=== PATIENT | male | born 1945 | race Caucasian/White ===

== ENCOUNTER → 2021-12-17 | Outpatient (CLI) | payer OTHER ==
[~2021-12-17] MED LIST: CEPHALEXIN500 M1 PO; NO HOME MEDICATIONS; NORCO 325 MG-51 TAB PO
== END ==
LOC: COL.VAS 13:58
DX: I08.3 Combined rheumatic disorders of mitral, aortic and tricuspid valves (principal)

== ENCOUNTER 2022-03-08 11:53 | Day surgery (SDC) | payer OTHER ==
[2022-03-08] VITALS (10 sets, daily range): BP systolic 101–148; BP diastolic 69–85; PULSE 64–78; TEMP 97.9
[~2022-03-08] VITALS: Ht 175.3 cm; Wt 89.4 kg
[2022-03-08 12:33] LABS: HEMATOCRIT 44.7 % (42.0-52.0); HEMOGLOBIN 14.7 g/dl (13.5-18.0); MEAN CELL VOLUME 88 fl (80.0-100.0); MEAN CORPUSCULAR HEMOGLOBIN 29 pg (27-31); MEAN CORPUSCULAR HGB CONC 33 g/dl (33.0-37.0); MEAN PLATELET VOLUME 10.7 fl (7.4-10.4); PLATELET COUNT 218 K/mm3 (130-400); RED BLOOD COUNT 5.06 M/mm3 (4.20-5.60); REDCELL DISTRIBUTION WIDTH-CV 13.2 % (11.5-14.5)
[2022-03-08 12:44] LABS: PROTHROMBIN TIME 11.3 SECONDS (9.7-12.8)
[2022-03-08 12:46] LABS: PARTIAL THROMBOPLASTIN TIME 28.2 SECONDS (26.0-37.0)
[2022-03-08 12:49] LABS: CALCIUM 8.9 mg/dL (8.4-10.2); CREATININE, serum 1.05 mg/dL (0.72-1.25); POTASSIUM 3.5 mmol/L (3.5-4.5)
[2022-03-08] MEDS ORDERED: ASPIRIN 81M81 MG/TA2 PO (12:58)
[2022-03-08] MEDS ORDERED: PROSCAR 5MG5 MG PO (12:59)
[2022-03-08] MEDS ORDERED: TOPROL XL 25MG25 MG PO (13:00)
[2022-03-08] MEDS ORDERED: LIPITOR 40MG TA40 MG PO (13:00)
[2022-03-08] MEDS ORDERED: TRELEGY ELLIPT1 EACH IH (13:01)
--- NOTE | 2022-03-08 14:09 | NUR ---
SEE MERGE FOR ALL MEDICATION ADMINISTRATION TIMES, INTRA AND POST SEDATION ASSESSMENTS
--- NOTE | 2022-03-08 14:54 | NUR ---
LEFT FEMORAL VENOUS ACCESS WITH CDI BANDAGE, BILAT LOWER EXT PULSES +2
--- NOTE | 2022-03-08 15:15 | NUR ---
LEFT VENOUS FEMORAL DRESSING CDI, BILAT LOWER EXTREMITY PULSES +2
--- NOTE | 2022-03-08 15:30 | NUR ---
BILAT LOWER EXTREMITY PULSES +2, DRESSING TO FEMORAL VENOUS ACCESS CDI
--- NOTE | 2022-03-08 15:45 | NUR ---
LEFT VENOUS FEMORAL ACCESS CDI, LOWER EXT. BILAT PULSES +2
--- NOTE | 2022-03-08 16:00 | NUR ---
BILAT LOWER EXTREMITY PULSES +2, FEMORAL VENOUS DRESSING CDI
--- NOTE | 2022-03-08 16:30 | NUR ---
GROIN DRESSING CDI, LOWER EXTREMITY PULSES +2
--- NOTE | 2022-03-08 17:00 | NUR ---
GROIN DRESSING CDI
--- NOTE | 2022-03-08 17:15 | NUR ---
2MLS REMOVED FROM TR BAND, NO BLEEDING NOTED, RADIAL PULSES +2 BILAT
--- NOTE | 2022-03-08 17:45 | NUR ---
REMAINDER OF AIR REMOVED FROM TR BAND. IV CATHETER REMOVED AND DRESSED. RIGHT RADIAL SITE DRESSED, DISCHARGE EDUCATION GIVEN, PT REPORTS UNDERSTANDING, PT ESCORTED VIA WHEELCHAIR TO EXIT, WAITING TO ENGINEER CONDUCTOR PT.
== END 2022-03-08 17:45 | disposition home or self-care (01) ==
LOC: COL.CAR 11:53
PROVIDERS: Internal Medicine Cardiovascular Disease
DX: R06.02 Shortness of breath (principal); J84.10 Pulmonary fibrosis, unspecified; E78.2 Mixed hyperlipidemia; I34.0 Nonrheumatic mitral (valve) insufficiency; I50.30 Unspecified diastolic (congestive) heart failure; R94.39 Abnormal result of other cardiovascular function study; Z87.891 Personal history of nicotine dependence
CPT/HCPCS: C1769; C1894; J1644; J2250; J3010

== ENCOUNTER 2022-03-08 19:23 | Emergency (ER) | payer OTHER ==
[~2022-03-08] VITALS: Ht 175.3 cm; Wt 88.6 kg
[~2022-03-08 19:23] MED LIST changes: +ASPIRIN 81M81 MG/TA2 PO; +LIPITOR 40MG TA40 MG PO; +PROSCAR 5MG5 MG PO; +TOPROL XL 25MG25 MG PO; +TRELEGY ELLIPT1 EACH IH
[2022-03-08 19:52] VITALS: TEMP 98.1
[2022-03-08 21:10] VITALS: BP 141/75; PULSE 80
== END 2022-03-08 21:29 | disposition home or self-care (01) ==
LOC: COL.ER 19:23
DX: I97.610 Postprocedural hemorrhage of a circulatory system organ or structure following a cardiac catheterization (principal); Z86.16 Personal history of COVID-19; Z28.310 Unvaccinated for COVID-19

== ENCOUNTER → 2023-06-14 | Outpatient (CLI) | payer OTHER | LOC: COL.RAD 09:18 | DX: H90.3 Sensorineural hearing loss, bilateral (principal); I67.82 Cerebral ischemia | CPT/HCPCS: A9575 ==